=== PATIENT | male | born 1945 | race Caucasian/White ===

== ENCOUNTER 2020-10-24 10:38 | Observation (INO) | payer OTHER ==
[~2020-10-24] VITALS: Ht 182.9 cm; Wt 88.5 kg
[2020-10-24 10:42] VITALS: BP 113/83
[2020-10-24] MEDS ORDERED: TOPROL XL25 MG PO (10:52)
[2020-10-24] MEDS ORDERED: ASA81BEC PO (10:52)
[2020-10-24] MEDS ORDERED: OMEPRAZOLE 20 M20 M1 PO (10:52)
[2020-10-24] MEDS ORDERED: TIMOLOL MALEATE5 M2 OPHTHALMIC (11:00)
[2020-10-24] MEDS ORDERED: HYDROCODON-ACE1 EAC7 PO (11:44)
[2020-10-24 15:58] LABS: ABSOLUTE BASOPHILS 0.1 thou/uL (0.0-0.2); ABSOLUTE EOSINOPHILS 0.1 thou/uL (0.0-0.7); ABSOLUTE LYMPHOCYTES 1.3 thou/uL (0.8-5.3); ABSOLUTE MONOCYTES 0.5 thou/uL (0.0-1.2); ABSOLUTE NEUTROPHILS 6.4 thou/uL (1.6-8.1); BASOPHILS 0.8 %; EOSINOPHILS 1.2 %; HEMATOCRIT 31.4 % (42.0-52.0); HEMOGLOBIN 10.6 gm/dL (14.0-18.0); LYMPHOCYTES 15.6 %; MCH 30.3 pg (26.0-34.0); MCHC 33.7 g/dL (28.0-37.0); MCV 89.9 fL (80.0-100.0); MONOCYTES 5.6 %; MPV 7.8 fl. (7.2-11.1); NUCLEATED RBCS 0 /100WBC; PLATELET COUNT* 189 thou/uL (150-400); POLYS 76.8 %; RBC 3.49 mil/uL (4.50-6.00); WBC 8.3 thou/uL (4.0-11.0)
[2020-10-24 16:10] LABS: CALCIUM 9.3 mg/dL (8.5-10.1); POTASSIUM 3.9 mmol/L (3.5-5.1)
[2020-10-24 16:15] LABS: ALBUMIN 3.4 g/dL (3.4-5.0); TOTAL BILIRUBIN 0.7 mg/dL (<0.1-1.0)
[2020-10-24 16:33] VITALS: BP 121/65
[2020-10-24 16:40] VITALS: BP 134/67
--- NOTE | 2020-10-24 18:38 | NUR ---
PATIENT RESTING IN BED. PATIENT ARRIVED FROM ER THIS AFTERNOON. PATIENT SETTLED TO ROOM. HISTORY, ASSESSMENT AND VITALS COMPLETED AND DOCUMENTED. PATIENT STATES PAIN IS CONTROLLED WITH MEDICATION GIVEN TO HIM IN ER. PATIENT IS UP STANDBY ASSIST TO BATHROOM. PATIENT HAS GOOD APPETITE. PATIENT DENIES ANY NEEDS AT THIS TIME. CALL LIGHT WITHIN REACH. BED ALARM ON.
[2020-10-24 20:15] VITALS: BP 114/54
[2020-10-25 00:17] VITALS: BP 100/49
[2020-10-25 04:48] LABS: HEMATOCRIT 28.9 % (42.0-52.0); HEMOGLOBIN 9.9 gm/dL (14.0-18.0); MCH 30.7 pg (26.0-34.0); MCHC 34.1 g/dL (28.0-37.0); MCV 89.9 fL (80.0-100.0); MPV 7.9 fl. (7.2-11.1); RBC 3.21 mil/uL (4.50-6.00); RDW-CV 14.9 % (10.5-14.5); WBC 6.6 thou/uL (4.0-11.0)
[2020-10-25 05:10] LABS: CALCIUM 8.6 mg/dL (8.5-10.1); POTASSIUM 3.8 mmol/L (3.5-5.1)
--- NOTE | 2020-10-25 05:39 | NUR ---
PT ALERT AND ORIENTED, UP WITH ASSISTANCE TO RESTROOM. REPORTED PAIN AT BEDTIME, FENTANYL GIVEN. LEFT EYE BRUISED/SWOLLENN. PAIN REPORTED AT 3/10. HE DOES NOT REPORT ANY DIZZINESS, VISION DISTURBANCES, NAUSEA, TINGLING OR NUMBNESS IN LEG.
[2020-10-25 07:52] VITALS: BP 111/61
[2020-10-25] MEDS ORDERED: ZOFRAN4 MG PO (08:53)
[2020-10-25] MEDS ORDERED: COLACE 100 MG100 MG PO (08:53)
[2020-10-25 11:50] VITALS: BP 111/61
[2020-10-25 12:11] VITALS: BP 111/61
--- NOTE | 2020-10-25 12:11 | NUR ---
PATIENT GIVEN DISCHARGE INSTRUCTIONS, PRESCRIPTION FOR COLACE AND ZOFRAN, ALONG WITH INFORMATIONAL SHEETS FOR BOTH. IV REMOVED. PATIENT DENIES ANY PAIN/QUESTIONS/CONCERNS PRIOR TO DISCHARGE. PATIENT ADAMENT ABOUT LEAVING WITHOUT PT SEEING HIM DR. SOLIS WANTED. PAGED DR. SOLIS TO INFORM AND HE WAS OK WITH PATIENT DISCHARGING. PATIENT AMBULATED OFF UNIT WITH PERSONAL BELONGINGS, ACCOMPANIED BY AND NURSING STAFF AT APPROX. 1210.
== END 2020-10-25 12:10 | disposition home or self-care (01) ==
LOC: M.ERS 10:38 → M.TBA-ER 15:33 → M.ORTHSURG 16:37
PROVIDERS: Physician Assistant; ADMIT Internal Medicine; ATTEND Internal Medicine
DX: S00.12XA Contusion of left eyelid and periocular area, initial encounter (principal); S80.12XA Contusion of left lower leg, initial encounter; Z20.822 Contact with and (suspected) exposure to COVID-19; K21.9 Gastro-esophageal reflux disease without esophagitis; I10 Essential (primary) hypertension; Z79.82 Long term (current) use of aspirin; Z79.899 Other long term (current) drug therapy; Z88.6 Allergy status to analgesic agent; Z86.69 Personal history of other diseases of the nervous system and sense organs; W01.198A Fall on same level from slipping, tripping and stumbling with subsequent striking against other object, initial encounter; Y93.89 Activity, other specified; Y92.89 Other specified places as the place of occurrence of the external cause; Y99.8 Other external cause status